=== PATIENT | female | born 1990 | race Caucasian/White ===

== ENCOUNTER 2017-03-06 23:33 | Emergency (ER) | payer OTHER ==
[~2017-03-06] VITALS: Ht 152.4 cm; Wt 68.0 kg
[~2017-03-06 23:33] MED LIST: DEPOP150I IM
[2017-03-06 23:57] VITALS: BP 110/79
== END 2017-03-07 00:15 | disposition home or self-care (01) ==
LOC: EMS 23:35
DX: T16.2XXA Foreign body in left ear, initial encounter (principal); X58.XXXA Exposure to other specified factors, initial encounter; Y93.89 Activity, other specified; Y92.89 Other specified places as the place of occurrence of the external cause; Y99.8 Other external cause status
CPT/HCPCS: 99281

== ENCOUNTER 2017-06-13 21:58 | Emergency (ER) | payer OTHER ==
[~2017-06-13] VITALS: Ht 152.4 cm; Wt 68.2 kg
[2017-06-13 23:00] VITALS: BP 122/76
== END 2017-06-13 23:29 | disposition home or self-care (01) ==
LOC: EMS 21:59
DX: K02.9 Dental caries, unspecified (principal)
CPT/HCPCS: 99283

== ENCOUNTER 2018-07-23 22:55 | Emergency (ER) | payer SELFPAY ==
[~2018-07-23] VITALS: Ht 152.4 cm; Wt 72.7 kg
[2018-07-24] MEDS ORDERED: HYDROCODONE/ACETAMINOPHEN 5-325 MG TABLET PO ONE (00:30)
[2018-07-24] MEDS ORDERED: KETOROLAC TROMETHAMINE 60 MG/2 ML VIAL IM ONE (00:30)
[2018-07-24 01:33] VITALS: BP 124/71
== END 2018-07-24 01:33 | disposition home or self-care (01) ==
LOC: EMS 22:57
DX: K08.89 Other specified disorders of teeth and supporting structures (principal)
CPT/HCPCS: 96372; 99283; J1885

== ENCOUNTER 2018-12-18 22:17 | Emergency (ER) | payer OTHER ==
[~2018-12-18] VITALS: Ht 152.4 cm; Wt 75.0 kg
[2018-12-18 22:22] VITALS: BP 119/64
== END 2018-12-19 01:10 | disposition home or self-care (01) ==
LOC: EMS 22:18
DX: J40 Bronchitis, not specified as acute or chronic (principal)

== ENCOUNTER 2019-07-08 13:53 | Emergency (ER) | payer OTHER ==
[~2019-07-08] VITALS: Ht 152.4 cm; Wt 77.3 kg
[2019-07-08] MEDS ORDERED: IBUPROFEN 400 MG TABLET PO ONE (15:00)
[2019-07-08 16:47] VITALS: BP 129/58
== END 2019-07-08 16:49 | disposition home or self-care (01) ==
LOC: EMS 13:55
DX: S93.691A Other sprain of right foot, initial encounter (principal); Z98.890 Other specified postprocedural states; W21.02XA Struck by soccer ball, initial encounter; Y93.66 Activity, soccer; Y92.89 Other specified places as the place of occurrence of the external cause; Y99.8 Other external cause status

== ENCOUNTER 2023-02-17 02:39 | Emergency (ER) | payer OTHER ==
[~2023-02-17] VITALS: Ht 152.4 cm; Wt 77.7 kg
[2023-02-17 02:40] VITALS: BP 109/71
[2023-02-17] MEDS ORDERED: AMOX250C4 PO (04:07)
[2023-02-17] MEDS ORDERED: KETOROLAC TROMETHAMINE 30 MG/ML VIAL IM ONE (04:15)
[2023-02-17] MEDS ORDERED: AMOXICILLIN TRIHYDRATE 250 MG CAPSULE PO ONE (04:15)
[2023-02-17] MEDS ORDERED: TraMADol HCL 50 MG TABLET PO ONE (04:15)
== END 2023-02-17 04:34 | disposition home or self-care (01) ==
LOC: EMS 02:40
DX: K02.9 Dental caries, unspecified (principal); Z98.890 Other specified postprocedural states
CPT/HCPCS: 99283; 81025; 96372; J1885